=== PATIENT | male | born 1980 | race Caucasian/White ===

== ENCOUNTER 2016-07-13 08:59 | Outpatient (RCR) | payer OTHER | END 2016-10-11 | disposition home or self-care (01) | LOC: LAB 08:59 | PROVIDERS: ATTEND Obstetrics & Gynecology | DX: N46.9 Male infertility, unspecified (principal) | CPT/HCPCS: 89320 ==

== ENCOUNTER → 2020-09-02 | Outpatient (CLI) | payer OTHER ==
[2020-09-02 09:00] LABS: BASOPHILS % (AUTO) 1 % (0-10); EOSINOPHILS # (AUTO) 0.2 10^3/uL (0.0-0.3); EOSINOPHILS % (AUTO) 3 % (0-10); HEMATOCRIT 46 % (40-54); HEMOGLOBIN 15.3 g/dL (13.3-17.7); LYMPHOCYTES # (AUTO) 1.9 10^3/uL (1.0-4.0); LYMPHOCYTES % (AUTO) 32 % (12-44); MEAN CORPUSCULAR HEMOGLOBIN 30 pg (25-34); MEAN CORPUSCULAR HGB CONC 33 g/dL (32-36); MEAN CORPUSCULAR VOLUME 89 fL (80-99); MEAN PLATELET VOLUME 9.7 fL (9.0-12.2); MONOCYTES # (AUTO) 0.5 10^3/uL (0.0-1.0); MONOCYTES % (AUTO) 8 % (0-12); NEUTROPHILS # (AUTO) 3.4 10^3/uL (1.8-7.8); NEUTROPHILS % (AUTO) 56 % (42-75); PLATELET COUNT 283 10^3/uL (130-400); WHITE BLOOD COUNT 6.1 10^3/uL (4.3-11.0)
[2020-09-02 09:13] LABS: ALBUMIN 4.4 GM/DL (3.2-4.5); CHLORIDE 107 MMOL/L (98-107); POTASSIUM 4.3 MMOL/L (3.6-5.0); SODIUM 139 MMOL/L (135-145)
[2020-09-02 09:15] LABS: GLUCOSE 98 MG/DL (70-105); TOTAL PROTEIN 7.1 GM/DL (6.4-8.2); TRIGLYCERIDES 408 MG/DL (<150); VLDL CHOLESTEROL 82 MG/DL (5-40)
[2020-09-02 09:16] LABS: CARBON DIOXIDE 22 MMOL/L (21-32)
[2020-09-02 09:17] LABS: BILIRUBIN,TOTAL 0.8 MG/DL (0.1-1.0)
[2020-09-02 09:19] LABS: ALKALINE PHOSPHATASE 83 U/L (40-136); CREATININE SERUM 0.88 MG/DL (0.60-1.30); GFR ESTIMATED > 60
[2020-09-02 09:20] LABS: BUN/CREATININE RATIO 17; CHOLESTEROL 162 MG/DL (< 200)
[2020-09-02 09:21] LABS: HDL CHOLESTEROL 28 MG/DL (40-60)
[2020-09-02 09:22] LABS: ALANINE AMINOTRANSFERASE 46 U/L (0-55)
== END ==
LOC: LAB 08:04
PROVIDERS: ATTEND Family Medicine
DX: Z00.01 Encounter for general adult medical examination with abnormal findings (principal); Z13.220 Encounter for screening for lipoid disorders; R53.83 Other fatigue
CPT/HCPCS: 36415; 80053; 80061; 84402; 84403; 85025

== ENCOUNTER → 2021-10-04 | Outpatient (CLI) | payer OTHER ==
[2021-10-04 08:01] LABS: BASOPHILS % (AUTO) 1 % (0-10); EOSINOPHILS # (AUTO) 0.1 10^3/uL (0.0-0.3); EOSINOPHILS % (AUTO) 2 % (0-10); HEMATOCRIT 46 % (40-54); HEMOGLOBIN 15.8 g/dL (13.3-17.7); LYMPHOCYTES # (AUTO) 2.3 10^3/uL (1.0-4.0); LYMPHOCYTES % (AUTO) 31 % (12-44); MEAN CORPUSCULAR HEMOGLOBIN 30 pg (25-34); MEAN CORPUSCULAR HGB CONC 34 g/dL (32-36); MEAN CORPUSCULAR VOLUME 86 fL (80-99); MEAN PLATELET VOLUME 9.7 fL (9.0-12.2); MONOCYTES # (AUTO) 0.6 10^3/uL (0.0-1.0); MONOCYTES % (AUTO) 8 % (0-12); NEUTROPHILS # (AUTO) 4.5 10^3/uL (1.8-7.8); NEUTROPHILS % (AUTO) 59 % (42-75); PLATELET COUNT 276 10^3/uL (130-400); WHITE BLOOD COUNT 7.6 10^3/uL (4.3-11.0)
[2021-10-04 08:19] LABS: CHLORIDE 107 MMOL/L (98-107); POTASSIUM 4.2 MMOL/L (3.6-5.0); SODIUM 140 MMOL/L (135-145)
[2021-10-04 08:20] LABS: ALBUMIN 4.5 GM/DL (3.2-4.5)
[2021-10-04 08:21] LABS: CALCIUM 9.6 MG/DL (8.5-10.1); TRIGLYCERIDES 451 MG/DL (<150)
[2021-10-04 08:22] LABS: GLUCOSE 94 MG/DL (70-105); TOTAL PROTEIN 7.3 GM/DL (6.4-8.2)
[2021-10-04 08:23] LABS: CARBON DIOXIDE 22 MMOL/L (21-32)
[2021-10-04 08:24] LABS: BILIRUBIN,TOTAL 0.8 MG/DL (0.1-1.0)
[2021-10-04 08:26] LABS: ALKALINE PHOSPHATASE 68 U/L (40-136); CHOLESTEROL 171 MG/DL (< 200); CREATININE SERUM 0.83 MG/DL (0.60-1.30); GFR ESTIMATED 114
[2021-10-04 08:27] LABS: BUN/CREATININE RATIO 24
[2021-10-04 08:28] LABS: HDL CHOLESTEROL 26 MG/DL (40-60)
[2021-10-04 08:29] LABS: ALANINE AMINOTRANSFERASE 39 U/L (0-55)
== END ==
LOC: LAB 07:19
PROVIDERS: ATTEND Family Medicine
DX: Z00.00 Encounter for general adult medical examination without abnormal findings (principal); E29.1 Testicular hypofunction
CPT/HCPCS: 36415; 80053; 80061; 84402; 84403; 85025

== ENCOUNTER 2022-06-07 04:56 | Emergency (ER) | payer OTHER ==
[~2022-06-07] VITALS: Ht 187.9 cm; Wt 97.5 kg
--- NOTE | 2022-06-07 05:14 | ED GI ---
General Stated Complaint: VOMITING,DIARRHEA, ABD & KIDNEY PX,WEAK Source of Information: Patient (DENI MADRIGAL DO) History of Present Illness Date Seen by Provider: Jun 07, 2022 Time Seen by Provider: 05:06 Initial Comments PT ARRIVES VIA POV FROM HOME HE STATES THAT AROUND 2230 TONIGHT, HE BEGAN FEELING SICK WITH: -NAUSEA AND VOMITING--EMESIS X 4--2 OR 3 TIMES HAD BLOOD -DIARRHEA X 7--ALL BRIGHT RED BLOOD WITH WIPING -DIFFUSE LOWER ABDOMINAL PAIN RADIATING TO BILATERAL FLANKS -NO FEVER -NO URINARY SYMPTOMS PT ATE DINNER AROUND 1830--PORK CHOPS AND BAKED POTATO OTHER HOUSEHOLD MEMBERS ATE SAME AND ARE NOT ILL PT DRANK 2 DRINKS AFTER DINNER--STRAIGHT WHISKEY FELT FINE ALL DAY NO HISTORY OF SIMILAR NO PRIOR ABDOMINAL SURGERIES OR GI PROBLEMS PT DID HAVE INFLUENZA A LAST WEEK. HE HAD RESPIRATORY SYMPTOMS--COUGH/CONGESTION, FEVER, HEADACHE, BODY ACHES. THOSE SYMPTOMS RESOLVED WITHOUT TREATMENT. PCP: DR. MELISSA SAAVEDRA (DENI MADRIGAL ) Allergies and Home Medications Allergies Coded Allergies: No Known Drug Allergies (Unverified , 06/07/22) Patient Home Medication List Home Medication List Reviewed: Yes (DENI MADRIGAL ) Hydrocodone/Acetaminophen (Hydrocodone-Acetamin 5-325 mg) 5 Mg-325 Mg Tablet, 1 TAB PO Q6H PRN for PAIN-MODERATE (5-7) Prescribed by: HERB JOY on 06/07/22 0838 Ondansetron (Ondansetron Odt) 4 Mg Tab.rapdis, 4 MG SL Q6H PRN for NAUSEA/VOMITING Prescribed by: HERB JOY on 06/07/22 0837 Tamsulosin HCl (Flomax) 0.4 Mg Cap, 0.4 MG PO HS Prescribed by: HERB JOY on 06/07/22 0837 Review of Systems Review of Systems Constitutional: no symptoms reported Respiratory: No Symptoms Reported Cardiovascular: No Symptoms Reported Gastrointestinal: See HPI, Abdominal Pain, Diarrhea, Nausea, Rectal Bleeding, Vomiting Genitourinary: No Symptoms Reported Musculoskeletal: see HPI, back pain Skin: no symptoms reported Psychiatric/Neurological: No Symptoms Reported Endocrine: No Symptoms Reported Hematologic/Lymphatic: No Symptoms Reported (KAITLINDENI Matos ) Past Vpchkcf-Wrxlat-Rwxmzh Hx Patient Social History Tobacco Use?: Yes Tobacco type used: Cigars Smoking Status: Current Someday Smoker Substance use?: No Alcohol Use?: Yes Alcohol type: Hard Liquor Alcohol Frequency: Once in a while (DENI MADRIGAL DO) Past Medical History Surgeries: Yes (ELBOW SURGERY) Orthopedic Respiratory: No Cardiac: No Neurological: No Genitourinary: No Gastrointestinal: No Musculoskeletal: No Endocrine: No HEENT: No Cancer: No Psychosocial: No Integumentary: No Blood Disorders: No (DENI MADRIGAL DO) Physical Exam Vital Signs Vital Signs - First Documented 06/07/22 05:05 Temp 35.8 Pulse 79 Resp 16 B/P (MAP) 138/87 (104) Pulse Ox 100 O2 Delivery Room Air (HERB JOY MD) Vital Signs Capillary Refill : (DENI MADRIGAL DO) Height/Weight/BMI Height: '" Weight: lbs. oz. kg; BMI Method: General Appearance: WD/WN, no apparent distress, other (+ ODOR OF ETOH; LOOKS UNCOMFORTABLE, HOLDING LOWER ABDOMEN, RESTLESS, HYPERVENTILATING. ) Respiratory: no respiratory distress, no accessory muscle use Cardiovascular: regular rate, rhythm, no murmur Gastrointestinal: normal bowel sounds, soft; No distended; guarding, tenderness (DIFFUSE MIDLINE TENDERNESS, AND DIFFUSE LOWER ABDOMINAL TENDERNESS AND BILATERAL FLANK TENDERNESS. ); No hernia, No mass; other (EQUIVOCAL REBOUND) Extremities: normal inspection, normal capillary refill Back: CVA tenderness (R), CVA tenderness (L) Neurologic/Psychiatric: no motor/sensory deficits, alert, normal mood/affect, oriented x 3 Skin: normal color, warm/dry (DENI MADRIGAL DO) Focused Exam Lactate Level 06/07/22 05:30: Lactic Acid Level 5.41*H 06/07/22 07:34: Lactic Acid Level 4.70*H (HERB JOY MD) Lactic Acid Level Laboratory Tests Test 06/07/22 05:30 06/07/22 07:34 Lactic Acid Level 5.41 MMOL/L (0.50-2.00) *H 4.70 MMOL/L (0.50-2.00) *H (HERB JOY MD) Progress/Results/Core Measures Results/Orders Lab Results Laboratory Tests Test 06/07/22 05:10 06/07/22 05:30 06/07/22 07:34 06/07/22 07:40 Range/Units White Blood Count 32.0 *H 4.3-11.0 10^3/uL Red Blood Count 5.47 4.30-5.52 10^6/uL Hemoglobin 16.3 13.3-17.7 g/dL Hematocrit 46 40-54 % Mean Corpuscular Volume 84 80-99 fL Mean Corpuscular Hemoglobin 30 25-34 pg Mean Corpuscular Hemoglobin Concent 35 32-36 g/dL Red Cell Distribution Width 13.4 10.0-14.5 % Platelet Count 436 H 130-400 10^3/uL Mean Platelet Volume 9.5 9.0-12.2 fL Immature Granulocyte % (Auto) 1 % Neutrophils (%) (Auto) 86 H 42-75 % Lymphocytes (%) (Auto) 7 L 12-44 % Monocytes (%) (Auto) 6 0-12 % Eosinophils (%) (Auto) 0 0-10 % Basophils (%) (Auto) 0 0-10 % Neutrophils # (Auto) 27.5 H 1.8-7.8 10^3/uL Lymphocytes # (Auto) 2.2 1.0-4.0 10^3/uL Monocytes # (Auto) 2.0 H 0.0-1.0 10^3/uL Eosinophils # (Auto) 0.0 0.0-0.3 10^3/uL Basophils # (Auto) 0.1 0.0-0.1 10^3/uL Immature Granulocyte # (Auto) 0.2 H 0.0-0.1 10^3/uL Neutrophils % (Manual) 78 % Lymphocytes % (Manual) 10 % Monocytes % (Manual) 5 % Eosinophils % (Manual) 0 % Basophils % (Manual) 0 % Band Neutrophils 5 % Reactive Lymphocytes 2 % Toxic Granulation 1+ Erythrocyte Sedimentation Rate 6 0-15 MM/HR Prothrombin Time 13.3 12.2-14.7 SEC INR Comment 1.0 0.8-1.4 Activated Partial Thromboplast Time 30 24-35 SEC Sodium Level 142 135-145 MMOL/L Potassium Level 3.8 3.6-5.0 MMOL/L Chloride Level 101 98-107 MMOL/L Carbon Dioxide Level 19 L 21-32 MMOL/L Anion Gap 22 H 5-14 MMOL/L Blood Urea Nitrogen 22 H 7-18 MG/DL Creatinine 1.42 H 0.60-1.30 MG/DL Estimat Glomerular Filtration Rate 64 BUN/Creatinine Ratio 15 Glucose Level 137 H 70-105 MG/DL Calcium Level 9.7 8.5-10.1 MG/DL Corrected Calcium 8.5-10.1 MG/DL Magnesium Level 1.9 1.6-2.4 MG/DL Total Bilirubin 0.5 0.1-1.0 MG/DL Aspartate Amino Transf (AST/SGOT) 29 5-34 U/L Alanine Aminotransferase (ALT/SGPT) 67 H 0-55 U/L Alkaline Phosphatase 83 40-136 U/L C-Reactive Protein High Sensitivity 0.11 0.00-0.50 MG/DL Total Protein 7.8 6.4-8.2 GM/DL Albumin 4.6 H 3.2-4.5 GM/DL Amylase Level 59 25-125 U/L Lipase 23 8-78 U/L Procalcitonin 0.04 <0.10 NG/ML Serum Alcohol < 10 <10 MG/DL Lactic Acid Level 5.41 *H 4.70 *H 0.50-2.00 MMOL/L Urine Color YELLOW Urine Clarity CLEAR Urine pH 7.0 5-9 Urine Specific [place] 1.015 L 1.016-1.022 Urine Protein NEGATIVE NEGATIVE Urine Glucose (UA) NEGATIVE NEGATIVE Urine Ketones NEGATIVE NEGATIVE Urine Nitrite NEGATIVE NEGATIVE Urine Bilirubin NEGATIVE NEGATIVE Urine Urobilinogen 0.2 < = 1.0 MG/DL Urine Leukocyte Esterase NEGATIVE NEGATIVE Urine RBC (Auto) 1+ H NEGATIVE Urine RBC 2-5 H /HPF Urine WBC RARE /HPF Urine Squamous Epithelial Cells RARE /HPF Urine Crystals NONE /LPF Urine Bacteria NEGATIVE /HPF Urine Casts NONE /LPF Urine Mucus NEGATIVE /LPF Urine Culture Indicated CULTURE PENDING Urine Opiates Screen NEGATIVE NEGATIVE Urine Oxycodone Screen NEGATIVE NEGATIVE Urine Methadone Screen NEGATIVE NEGATIVE Urine Propoxyphene Screen NEGATIVE NEGATIVE Urine Barbiturates Screen NEGATIVE NEGATIVE Ur Tricyclic Antidepressants Screen NEGATIVE NEGATIVE Urine Phencyclidine Screen NEGATIVE NEGATIVE Urine Amphetamines Screen NEGATIVE NEGATIVE Urine Methamphetamines Screen NEGATIVE NEGATIVE Urine Benzodiazepines Screen NEGATIVE NEGATIVE Urine Cocaine Screen NEGATIVE NEGATIVE Urine Cannabinoids Screen NEGATIVE NEGATIVE (HERB JOY MD) My Orders Orders - HERB JOY MD Lactated Ringers (Lr 1000 Ml Iv Solution (06/07/22 06:30) Morphine Injection (Morphine Injection (06/07/22 06:30) Lactated Ringers (Lr 1000 Ml Iv Solution (06/07/22 07:00) (HERB JOY MD) Medications Given in ED Current Medications Medications Dose Ordered Sig/Maddy Route Start Time Stop Time Status Last Admin Dose Admin Iohexol 100 ml ONCE ONCE IV 06/07/22 07:15 06/07/22 07:31 DC 06/07/22 07:13 80 ML Lactated Ringer's 1,000 ml @ 0 mls/hr Q0M ONCE IV 06/07/22 05:45 06/07/22 05:46 DC 06/07/22 05:42 1,000 MLS/HR Ondansetron HCl 4 mg ONCE ONCE IVP 06/07/22 05:45 06/07/22 05:46 DC 06/07/22 05:46 4 MG Pantoprazole 40 mg ONCE ONCE IV 06/07/22 05:45 06/07/22 05:46 DC 06/07/22 05:46 40 MG Piperacillin Sod/ Tazobactam Sod 4.5 gm/Sodium Chloride 100 ml @ 200 mls/hr ONCE ONCE IV 06/07/22 05:30 06/07/22 05:59 DC 06/07/22 05:42 200 MLS/HR Promethazine HCl 25 mg ONCE ONCE IVP 06/07/22 06:15 06/07/22 06:16 DC 06/07/22 06:15 25 MG Sodium Chloride 100 ml ONCE ONCE IV 06/07/22 07:15 06/07/22 07:31 DC 06/07/22 07:14 80 ML (HERB JOY MD) Vital Signs/I&O 06/07/22 05:05 Temp 35.8 Pulse 79 Resp 16 B/P (MAP) 138/87 (104) Pulse Ox 100 O2 Delivery Room Air (HERB JOY MD) Progress Progress Note : Progress Note GIVEN: -IV FLUIDS -ZOFRAN -PROTONIX -ANTIBIOTICS -PAIN MEDICATION -PHENERGAN ON RECEIVING CBC RESULTS SHOWING ELEVATED WBC, SEPSIS PROTOCOL INITIATED. 0600--PT VOMITING A LARGE AMOUNT OF BROWN LIQUID--NO BLOOD OR COFFEE-GROUND APPEARANCE. ADDITIONAL ANTI-EMETICS ORDERED. CARE IS TURNED OVER TO DR. JOY AT SHIFT CHANGE. CT IS PENDING AT THIS TIME, AND PT HAS NOT URINATED YET. (DENI MADRIGAL DO) Progress Note #1: Time: 06:42 Progress Note Assumed care of the patient at 0600, he is actively vomiting. Had been given zofran prior. Patient noted to have significant leukocytosis. Elevated Bun/Creat on CH12. LR infusing. Has not produced a urine specimem yet. etoh neg. Lactic >5. Rates his pain at an "8". IV morphine ordered. On exam, no BS auscultated. DIffusely tender with involuntary guarding. VSS. Not tachy. no respiratory distress (or complaints of respiratory issues). Bedside U/S used to look for free fluid - neg in lerner's pouch, splenorenal recess and bladder. patient going for CT abd/pelvis at this time with IV contrast. 2nd liter of LR ordered as well. Progress Note #2: Time: 08:26 Progress Note Patient was reassessed. Pain down to a "5". HIs UA returned with microscopic hematuria, no signs of infection. HIs CT abdomen/pelvis revealed a horseshoe kidney with a left sided kidney stone - at the renal pelvis, but not obstructive and a right sided stone at the UVJ of 2mm. mild hydro ureter. His lactic is decreasing with hydration (down to 4). VS remain stable. Will redose him with some pain medications. I'm also giving him some flomax. ANticipate discharge to home with pain meds, nausea meds, continued oral hydration, flomax, a urine strainer. at the bedside stated that his mother has a long history of kidney stones and is questioning urologic follow up. As we have no local urologist currently, have recommended, should they decide to seek urilogy care - closest would be in [place] at either [facility] or [place]. All questions are sought and answered. Patient does not meet criteria for "severe sepsis" in spite of Lactic acid >5 due to no suspected infection. Lactic acidosis from dehydration (he may have already been slightly dry when symptoms started as he did drink whiskey last night) - vomiting, diarrhea. (HERB JOY MD) Diagnostic Imaging Comments CXR--PER RADIOLOGIST REPORT AT 0602 FINDINGS: Heart size and pulmonary vasculature are within normal limits, and the lungs are clear, bilaterally. IMPRESSION: Unremarkable chest. Reviewed: Reviewed by Me (DENI MADRIGAL DO) Comments [facility], [place] NAME: AVERY CASILLAS [facility] REC#: [id number] PT STATUS: REG ER : 1980 PHYSICIAN: DENI MADRIGAL DO ADMIT DATE: 06/07/22/ER Signed Date of Exam:06/07/22 CHEST 1 VIEW, AP/PA ONLY Indication: Emesis Portable AP view of chest is obtained. COMPARISON: No previous study is available for comparison at this time. FINDINGS: Heart size and pulmonary vasculature are within normal limits, and the lungs are clear, bilaterally. IMPRESSION: Unremarkable chest. Dictated by: Dictated on workstation # [id number] Dict: 06/07/22 0554 Trans: 06/07/22 0555 [id number] Interpreted by: FIDEL HARVEY MD Electronically signed by: FIDEL HARVEY MD 06/07/22 0555 Diagonstic Imaging: CT Comments [facility] [place] NAME: AVERY CASILLAS [facility] REC#: [id number] PT STATUS: REG ER : 1980 PHYSICIAN: DENI MADRIGAL DO ADMIT DATE: 06/07/22/ER Draft Date of Exam:06/07/22 CT ABDOMEN/PELVIS W PROCEDURE: CT abdomen and pelvis with contrast. TECHNIQUE: Multiple contiguous axial images were obtained through the abdomen and pelvis after administration of intravenous contrast. Auto Exposure Controls were utilized during the CT exam to meet ALARA standards for radiation dose reduction. All CT scans use one or more of the following dose optimizing techniques: automated exposure control, MA and/or KvP adjustment based on patient size and exam type or iterative reconstruction. INDICATION: Abdominal pain with nausea and emesis No focal hepatic, gallbladder, pancreatic, adrenal gland or splenic abnormality is identified. There is horseshoe configuration to the kidneys within approximately 0.4 cm calculus in the left renal component. There is mild to moderate right hydronephrosis with dilatation of the right ureter to the level of an approximately 0.2 cm calculus at the right ureteral vesicle junction. No bowel obstruction is identified. There is no evidence of free intraperitoneal fluid. IMPRESSION: Horseshoe configuration of the kidneys with nonobstructing stone in the left kidney. Mild to moderate right hydronephrosis and hydroureter is likely related to 0.2 cm calculus at the right ureterovesical junction. Dictated on workstation # [id number] Dict: 06/07/22 0656 Trans: 06/07/22 0708 [facility] [id number] Interpreted by: FIDEL HARVEY MD Electronically signed by: (HERB JOY MD) Departure Impression Primary Impression: Ureteral calculus, right Additional Impressions: Horseshoe kidney with renal calculus Dehydration Lactic acidosis Neutrophilic leukocytosis Disposition: 01 HOME, SELF-CARE Condition: Improved Departure-Patient Inst. Decision time for Depature: 08:31 (HERB JOY MD) Referrals: MELISSA SAAVEDRA MD (PCP/Family) Primary Care Physician Patient Instructions: Kidney Stone, Adult ED Add. Discharge Instructions: drink lots of fluids over the next 24-48 hours as you were significantly dehydrated. Avoid alcohol and caffeine containing products, as caffeine is a diuretic, Water, gatorade, propel fitness water are good choices. Take flomax daily, 0.4mg at night. Pain meds, hydrocodone 5mg/325mg tablets, 1 every 6 hours as needed for pain. You can take an additional tylenol with the hydrocodone tablet. Nausea medications, Ondansetron 4mg tablets every 6-8 hours as needed for nausea. Strain your urine until you pass your kidney stone. Please follow up in a week with your primary care doctor. You will need to have your labs rechecked to make sure your kidney function is still good.\\ Return to the Emergency Department for any new, concerning or emergent com plaints - especially continued pain, not relieved with pain meds and fever. Scripts Ondansetron (Ondansetron Odt) 4 Mg Tab.rapdis 4 MG SL Q6H PRN for NAUSEA/VOMITING, #12 TAB Prov: HERB JOY MD 06/07/22 Hydrocodone/Acetaminophen (Hydrocodone-Acetamin 5-325 mg) 5 Mg-325 Mg Tablet 1 TAB PO Q6H PRN for PAIN-MODERATE (5-7), #12 TAB Prov: HERB JOY MD 06/07/22 Tamsulosin HCl (Flomax) 0.4 Mg Cap 0.4 MG PO HS for 14 Days, #14 CAP Prov: HERB JOY MD 06/07/22 Copy Copies To 1: MELISSA SAAVEDRA MD, LISA K DO Jun 07, 2022 05:14 HERB JOY MD Jun 07, 2022 06:46
[2022-06-07 05:21] LABS: BASOPHILS # (AUTO) 0.1 10^3/uL (0.0-0.1); BASOPHILS % (AUTO) 0 % (0-10); EOSINOPHILS % (AUTO) 0 % (0-10); HEMATOCRIT 46 % (40-54); HEMOGLOBIN 16.3 g/dL (13.3-17.7); LYMPHOCYTES # (AUTO) 2.2 10^3/uL (1.0-4.0); LYMPHOCYTES % (AUTO) 7 % (12-44); MEAN CORPUSCULAR HEMOGLOBIN 30 pg (25-34); MEAN CORPUSCULAR HGB CONC 35 g/dL (32-36); MEAN CORPUSCULAR VOLUME 84 fL (80-99); MEAN PLATELET VOLUME 9.5 fL (9.0-12.2); MONOCYTES % (AUTO) 6 % (0-12); NEUTROPHILS # (AUTO) 27.5 10^3/uL (1.8-7.8); NEUTROPHILS % (AUTO) 86 % (42-75); PLATELET COUNT 436 10^3/uL (130-400)
[2022-06-07] MEDS ORDERED: PIPERACILLIN SODIUM/TAZOBACTAM 4.5 GM in NS (IVPB) 100 ML IV ONE (05:30)
[2022-06-07 05:38] LABS: BAND NEUTROPHILS 5 %; BASOPHILS % (MANUAL) 0 %; EOSINOPHILS % (MANUAL) 0 %; LYMPHOCYTES % (MANUAL) 10 %; MONOCYTES % (MANUAL) 5 %; NEUTROPHILS % (MANUAL) 78 %; REACTIVE LYMPHOCYTES 2 %; TOXIC GRANULATION/VACUOLAZATIO 1+
[2022-06-07] MEDS ORDERED: fentaNYL INJ 100 MCG/2 ML AMP IVP STA (05:38)
[2022-06-07 05:45] LABS: ALBUMIN 4.6 GM/DL (3.2-4.5)
[2022-06-07] MEDS ORDERED: LACTATED RINGERS 1,000 ML IV ONE (05:45)
[2022-06-07] MEDS ORDERED: PANTOPRAZOLE 40 MG (PROTONIX) VIAL IV ONE (05:45)
[2022-06-07] MEDS ORDERED: ONDANSETRON 4 MG/2 ML (SDV) Z0FRAN IVP ONE (05:45)
[2022-06-07 05:46] LABS: AMYLASE 59 U/L (25-125); CHLORIDE 101 MMOL/L (98-107); POTASSIUM 3.8 MMOL/L (3.6-5.0); SODIUM 142 MMOL/L (135-145)
[2022-06-07 05:47] LABS: CALCIUM 9.7 MG/DL (8.5-10.1)
[2022-06-07 05:48] LABS: GLUCOSE 137 MG/DL (70-105); PROTHROMBIN TIME PATIENT 13.3 SEC (12.2-14.7); TOTAL PROTEIN 7.8 GM/DL (6.4-8.2)
[2022-06-07 05:49] LABS: CARBON DIOXIDE 19 MMOL/L (21-32)
[2022-06-07 05:50] LABS: BILIRUBIN,TOTAL 0.5 MG/DL (0.1-1.0)
[2022-06-07 05:51] LABS: ALKALINE PHOSPHATASE 83 U/L (40-136)
[2022-06-07 05:52] LABS: CREATININE SERUM 1.42 MG/DL (0.60-1.30); GFR ESTIMATED 64
[2022-06-07 05:53] LABS: BUN/CREATININE RATIO 15
[2022-06-07 05:55] LABS: ALANINE AMINOTRANSFERASE 67 U/L (0-55); LIPASE 23 U/L (8-78)
--- NOTE | 2022-06-07 05:56 | Diagnostic Imaging Report ---
Indication: Emesis Portable AP view of chest is obtained. COMPARISON: No previous study is available for comparison at this time. FINDINGS: Heart size and pulmonary vasculature are within normal limits, and the lungs are clear, bilaterally. IMPRESSION: Unremarkable chest. Dictated by: Dictated on workstation # [id number]
[2022-06-07 06:01] LABS: MAGNESIUM 1.9 MG/DL (1.6-2.4)
[2022-06-07] MEDS ORDERED: PROMETHAZINE INJ 25 MG/ML (PHENERGAN) AMP IVP ONE (06:15)
[2022-06-07] MEDS: LACTATED RINGERS 1,000 ML IV SCH ×2 (06:27→07:43)
[2022-06-07] MEDS ORDERED: morphine INJ 10 MG/ML 1ML (SYR OR VIAL) IVP STA ×2 (06:30→08:19)
[2022-06-07] MEDS ORDERED: LACTATED RINGERS 1,000 ML IV SCH (07:00)
--- NOTE | 2022-06-07 07:09 | Diagnostic Imaging Report ---
PROCEDURE: CT abdomen and pelvis with contrast. TECHNIQUE: Multiple contiguous axial images were obtained through the abdomen and pelvis after administration of intravenous contrast. Auto Exposure Controls were utilized during the CT exam to meet ALARA standards for radiation dose reduction. All CT scans use one or more of the following dose optimizing techniques: automated exposure control, MA and/or KvP adjustment based on patient size and exam type or iterative reconstruction. INDICATION: Abdominal pain with nausea and emesis No focal hepatic, gallbladder, pancreatic, adrenal gland or splenic abnormality is identified. There is horseshoe configuration to the kidneys within approximately 0.4 cm calculus in the left renal component. There is mild to moderate right hydronephrosis with dilatation of the right ureter to the level of an approximately 0.2 cm calculus at the right ureteral vesicle junction. No bowel obstruction is identified. There is no evidence of free intraperitoneal fluid. IMPRESSION: Horseshoe configuration of the kidneys with nonobstructing stone in the left kidney. Mild to moderate right hydronephrosis and hydroureter is likely related to 0.2 cm calculus at the right ureterovesical junction. Dictated by: Dictated on workstation # [id number]
[2022-06-07] MEDS ORDERED: NS 100 ML (IVPB) BAG IV ONE (07:15)
[2022-06-07] MEDS ORDERED: HOLD METFORMIN - RECEIVED CONTRAST 20 ML VIAL IV SCH (07:15)
[2022-06-07] MEDS ORDERED: IOHEXOL 350 MG/ML 100 ML (OMNIPAQUE 350) VIAL IV ONE (07:15)
[2022-06-07 08:01] LABS: BACTERIA,URINE NEGATIVE /HPF; BILIRUBIN,URINE NEGATIVE (NEGATIVE); CLARITY,URINE CLEAR; COLOR,URINE YELLOW; GLUCOSE, URINE (UA) NEGATIVE (NEGATIVE); KETONES,URINE NEGATIVE (NEGATIVE); LEUKOCYTE ESTERASE ,URINE NEGATIVE (NEGATIVE); NITRITE,URINE NEGATIVE (NEGATIVE); PROTEIN,URINE NEGATIVE (NEGATIVE); SQUAMOUS EPITHELIAL CELL,UR RARE /HPF; WBC,URINE RARE /HPF
[2022-06-07 08:04] LABS: AMPHETAMINE SCREEN, URINE NEGATIVE (NEGATIVE); BARBITURATE SCREEN URINE NEGATIVE (NEGATIVE); BENZODIAZEPINES SCREEN URINE NEGATIVE (NEGATIVE); CANNABINOID SCREEN, URINE NEGATIVE (NEGATIVE); COCAINE SCREEN URINE NEGATIVE (NEGATIVE); METHADONE STAT NEGATIVE (NEGATIVE); OPIATE SCREEN URINE NEGATIVE (NEGATIVE); OXYCODONE STAT NEGATIVE (NEGATIVE); PROPOXYPHENE STAT NEGATIVE (NEGATIVE); TRICYCLIC ANTIDEPRESSANTS SCRE NEGATIVE (NEGATIVE)
[2022-06-07] MEDS ORDERED: TAMSULOSIN 0.4 MG (FLOMAX) CAP PO STA (08:19)
[2022-06-07] MEDS ORDERED: GLYCOPYRROLATE 0.2 MG/ML (ROBINUL) 2 ML VIAL IV ONE (08:30)
[2022-06-07] MEDS ORDERED: TMSL.4C PO (08:37)
[2022-06-07] MEDS ORDERED: ONDA4TAB11 SL (08:37)
[2022-06-07] MEDS ORDERED: ACHD5005 PO (08:37)
[2022-06-07 09:05] VITALS: BP 128/80
== END 2022-06-07 09:00 | disposition home or self-care (01) ==
LOC: EDUNIT# 04:56 → ER 04:59
DX: N13.2 Hydronephrosis with renal and ureteral calculous obstruction (principal); Q63.1 Lobulated, fused and horseshoe kidney; E86.0 Dehydration; E87.20 Acidosis, unspecified; F17.210 Nicotine dependence, cigarettes, uncomplicated
CPT/HCPCS: 71045; 74177; 80053; 80306; 81000; 82150; 83605; 83690; 83735; 84145; 85007; 85027; 85610; 85652; 85730; 86141; 87040; 87088; 93041; 99284; G0480; 36415; 80320

== ENCOUNTER → 2022-06-18 | Outpatient (CLI) | payer OTHER ==
[~2022-06-18] MED LIST: ACHD5005 PO; ONDA4TAB11 SL; TMSL.4C PO
[2022-06-18 13:17] LABS: ALBUMIN 4.3 GM/DL (3.2-4.5); POTASSIUM 4.2 MMOL/L (3.6-5.0)
[2022-06-18 13:20] LABS: TOTAL PROTEIN 7.1 GM/DL (6.4-8.2)
[2022-06-18 13:21] LABS: BILIRUBIN,TOTAL 0.6 MG/DL (0.1-1.0)
[2022-06-18 13:23] LABS: CREATININE SERUM 0.84 MG/DL (0.60-1.30)
--- NOTE | 2022-06-18 16:19 | Diagnostic Imaging Report ---
PROCEDURE: US Renal Bilateral. TECHNIQUE: Multiple Real-time grayscale images were obtained over the kidneys in various projections bilaterally. INDICATION: Horseshoe kidney and right-sided hydronephrosis. FINDINGS: The right kidney measures 8.5 x 3.3 x 5.1 cm and the left kidney measures 9.2 x 3.5 x 3.7 cm. The kidneys are in a horseshoe configuration. The cortical thickness and echogenicity are normal. No calculi are seen. There is no hydronephrosis identified on today's study. Bilateral ureteral jets were visualized. IMPRESSION: Horseshoe kidneys. No hydronephrosis is detected. Dictated by: Dictated on workstation # [id number]
== END ==
LOC: RAD 12:14
PROVIDERS: ATTEND Family Medicine
DX: Q63.1 Lobulated, fused and horseshoe kidney (principal); N13.30 Unspecified hydronephrosis; N20.1 Calculus of ureter
CPT/HCPCS: 36415; 76770; 80053